=== PATIENT | female | born 1965 ===

== ENCOUNTER 2017-09-17 14:36 | Emergency (ER) | payer OTHER ==
[~2017-09-17] VITALS: Ht 160 cm; Wt 84.8 kg
[~2017-09-17 14:36] MED LIST: ALPRAZOLAM XR2 MG; DEPAKOTE ER500 MG PO; HUMULIN N100 U/ML SQ; HUMULIN R; KLONOPIN2 MG/TAB PO; METFORMIN HCL1000 MG PO; PERCOCET 5/3251 TAB PO; PROZAC20 MG PO; SEROQUEL 100MG
[2017-09-17] MEDS ORDERED: LANTUS SOL100 UNIT/1 SQ (14:40)
[2017-09-17] MEDS ORDERED: COZAAR100 MG PO (14:40)
== END 2017-09-17 20:50 | disposition home or self-care (01) ==
LOC: ER 14:36
DX: K29.70 Gastritis, unspecified, without bleeding (principal); T40.2X5A Adverse effect of other opioids, initial encounter

== ENCOUNTER 2017-12-16 21:10 | Emergency (ER) | payer OTHER ==
[~2017-12-16] VITALS: Ht 160 cm; Wt 86.2 kg
[~2017-12-16 21:10] MED LIST changes: +COZAAR100 MG PO; +LANTUS SOL100 UNIT/1 SQ
== END 2017-12-17 00:40 | disposition home or self-care (01) ==
LOC: ER 21:10
DX: K04.7 Periapical abscess without sinus (principal); E11.9 Type 2 diabetes mellitus without complications